=== PATIENT | male | born 1950 | race Caucasian/White ===

== ENCOUNTER → 2019-01-07 08:36 | Outpatient (CLI) | payer MEDICARE, OTHER, SELFPAY ==
--- NOTE | 2019-01-07 | DI.RAD.S_ITS ---
PROCEDURE: XR CHEST 2V INDICATIONS: COUGH, short of breath TECHNIQUE: 2 views of the chest were acquired. COMPARISON: None. FINDINGS: Surgical changes and devices: None. Lungs and pleura: Lungs are clear. No pleural effusions or pneumothorax. Mediastinum: The cardiac contours are within normal limits. The aorta demonstrates calcification and tortuosity. Bones and chest wall: Age-appropriate bony degenerative changes are seen. No suspicious bony abnormalities. Soft tissues appear unremarkable. IMPRESSION: No acute cardiopulmonary process is seen. No focal infiltrates are seen. Dictated by: Diego Red M.D. on 01/07/2019 at 8:02 Approved by: Diego Red M.D. on 01/07/2019 at 8:02
== END ==
PROVIDERS: PCP Family Medicine; Visit Provider Family Medicine
DX: R05 Cough (principal); R06.02 Shortness of breath
CPT/HCPCS: 71046

== ENCOUNTER → 2021-04-10 09:24 | Outpatient (CLI) | payer MEDICARE, OTHER, SELFPAY ==
[2021-04-10 18:34] LABS: Alanine Aminotransferase 58 IU/L (<50); Albumin 4.1 g/dL (3.5-5.0); Albumin Globulin Ratio 1.6 (1.0-2.8); Alkaline Phosphatase 60 U/L (38-126); Aspartate Aminotransferase 45 IU/L (17-59); BUN Creatinine Ratio 26.5 (6-22); Bilirubin Total 0.6 mg/dL (0.2-1.3); Blood Urea Nitrogen 18 mg/dL (9-20); Calcium 9.3 mg/dL (8.4-10.2); Carbon Dioxide 29 mmol/L (22-32); Chloride 102 mmol/L (98-107); Cholesterol 181 mg/dL (140-199); Estimated Glomerular Filt Rate > 60.0 mL/min (>60); Globulin 2.6 g/dL (1.7-4.1); Glucose 101 mg/dL (80-110); HDL Cholesterol 49 mg/dL (40-60); HEMOLYSIS < 15 (0-50); LDL Cholesterol Calculated 114 mg/dL (<100); Potassium 4.2 mmol/L (3.4-5.1); Sodium 137 mmol/L (137-145); Total Protein 6.7 g/dL (6.3-8.2); Triglycerides 90 mg/dL (35-150)
== END ==
PROVIDERS: PCP Family Medicine; Visit Provider Family Medicine
DX: E78.5 Hyperlipidemia, unspecified (principal); M19.011 Primary osteoarthritis, right shoulder
CPT/HCPCS: 80053; 80061

== ENCOUNTER → 2021-05-29 10:06 | Outpatient (CLI) | payer MEDICARE, OTHER, SELFPAY ==
[2021-05-29 18:59] LABS: Add Manual Diff / Slide Review NO; Basophils Absolute Auto 100 /uL (0-100); Basophils Percent Auto 1.1 % (0-2); Eosinophils Absolute Auto 200 /uL (0-450); Eosinophils Percent Auto 3.1 % (2-4); Hematocrit 43.9 % (41-53); Hemoglobin 15.1 g/dL (13.5-17.5); Lymphocytes Absolute Auto 1300 /uL (1100-4500); Lymphocytes Percent Auto 22.9 % (25-40); Mean Corpuscular HGB Conc 34.4 % (30-36); Mean Corpuscular Hemoglobin 29.9 PG (26-34); Mean Corpuscular Volume 86.7 fL (80-100); Monocytes Absolute Auto 500 /uL (0-900); Monocytes Percent Auto 8.8 % (3-14); Neutrophils Absolute Auto 3600 /uL (1500-7000); Neutrophils Percent Auto 64.1 % (50-75); Platelet Count 223 X10^3/uL (150-400); Red Blood Cell Count 5.06 X10^6/uL (4.5-5.9); Red Cell Distribution Width 13.1 % (11.6-14.8); White Blood Cell Count 5.6 X10^3/uL (4.5-11.0)
[2021-05-29 19:51] LABS: Prostate Specific Antigen 1.92 ng/mL (0.10-4.00)
[2021-05-29 20:43] LABS: Bilirubin Total 0.5 mg/dL (0.2-1.3); Estimated Glomerular Filt Rate > 60.0 mL/min (>60); HEMOLYSIS < 15 (0-50)
[2021-05-29 21:22] LABS: Chloride 103 mmol/L (98-107); Sodium 141 mmol/L (137-145)
[2021-05-29 21:23] LABS: Calcium 9.8 mg/dL (8.4-10.2); Carbon Dioxide 30 mmol/L (22-32); Glucose 103 mg/dL (80-110)
[2021-05-29 21:24] LABS: Albumin 4.3 g/dL (3.5-5.0); Globulin 2.7 g/dL (1.7-4.1)
[2021-05-29 21:25] LABS: Alanine Aminotransferase 68 IU/L (<50); Albumin Globulin Ratio 1.6 (1.0-2.8); Alkaline Phosphatase 56 U/L (38-126); Aspartate Aminotransferase 56 IU/L (17-59); BUN Creatinine Ratio 17.3 (6-22)
[2021-05-29 21:26] LABS: Blood Urea Nitrogen 14 mg/dL (9-20); Potassium 4.7 mmol/L (3.4-5.1)
== END ==
PROVIDERS: Registered Nurse; PCP Family Medicine; Visit Provider Specialist
DX: N40.0 Benign prostatic hyperplasia without lower urinary tract symptoms (principal); Z79.899 Other long term (current) drug therapy
CPT/HCPCS: 80053; 84153; 85025

== ENCOUNTER → 2021-06-08 08:55 | Outpatient (CLI) | payer MEDICARE, OTHER, SELFPAY ==
--- NOTE | 2021-06-08 08:57 | DI.MRI.S_ITS ---
PROCEDURE: MR SHOULDER RT WO CON INDICATIONS: Adhesive capsulitis TECHNIQUE: Noncontrast oblique coronal T2 fast spin echo with fat saturation, oblique sagittal T1 spin echo and T2 fast spin echo with fat saturation, axial T1 spin echo and T2 fast spin echo with fat saturation through the shoulder. COMPARISON: [facility] ([place]), CR, XR SHOULDER RT MIN 2V, 04/10/2021, 9:13. FINDINGS: Image quality: Excellent. Rotator cuff: There is full-thickness tearing of the mid and anterior supraspinatus tendon at the humeral insertion site. Tendinopathy with moderate grade articular surface tearing of the posterior supraspinatus tendon at the humeral insertion site. Low-grade partial-thickness articular surface tearing of the mid and anterior infraspinatus tendon at the humeral insertion site. Low-grade partial-thickness intrasubstance tearing of the mid and superior subscapularis tendon at the humeral insertion site extending the musculotendinous junction. Teres minor is intact. Bones and bursae: There is a subacute appearing impacted fracture of the humeral neck, as before which demonstrates a small focus of bony bridging. There is curvilinear geographic low T1/high T2 signal intensity within the medial aspect of the humeral head, indicating a vascular necrosis. Periarticular osteophyte formation at the glenohumeral joint is present. There is chronic irregularity of the acromion, possibly secondary to remote trauma. There is widening of the acromioclavicular interval. Moderate acromioclavicular joint degeneration. The acromion demonstrates conventional anatomy, without an os acromiale. No pathologic subacromial-subdeltoid or subcoracoid bursal fluid is present. Capsule and soft tissues: Labrum demonstrates diffuse irregularity, especially posteriorly. The long head of the biceps tendon demonstrates moderate grade tearing.. The rotator interval appears normal, without fibrosis. The coracohumeral ligament is normal in thickness. IMPRESSION: 1. Healing impacted humeral neck fracture. 2. Avascular necrosis of the humeral head. 3. Acromioclavicular and glenohumeral joint osteoarthritis. 4. Degenerative glenoid labral tearing. 5. Possible posttraumatic irregularity of the acromion. 6. Biceps tendon tear. 7. Full-thickness tearing of the supraspinatus as above. Partial-thickness tearing of the subscapularis and infraspinatus tendons. Dictated by: Bhavana Adamson M.D. on 06/08/2021 at 10:56 Approved by: Bhavana Adamson M.D. on 06/08/2021 at 11:02
== END ==
PROVIDERS: PCP Family Medicine; Referring Provider Family Medicine; Visit Provider Family Medicine
DX: M75.111 Incomplete rotator cuff tear or rupture of right shoulder, not specified as traumatic (principal); M19.011 Primary osteoarthritis, right shoulder; M87.821 Other osteonecrosis, right humerus; M75.01 Adhesive capsulitis of right shoulder; M25.511 Pain in right shoulder; S43.491A Other sprain of right shoulder joint, initial encounter; S46.111A Strain of muscle, fascia and tendon of long head of biceps, right arm, initial encounter; S42.291D Other displaced fracture of upper end of right humerus, subsequent encounter for fracture with routine healing; G89.29 Other chronic pain
CPT/HCPCS: 73221

== ENCOUNTER → 2022-09-08 08:47 | Outpatient (CLI) | payer MEDICARE, OTHER, SELFPAY ==
--- NOTE | 2022-09-10 07:43 | PM.PFT.1 ---
Pulmonary Function Test Referral & Results Date Patient Seen: 09/08/22 Requesting provider: Deena Perez Results: The spirometry demonstrates an FVC of 2.95 L which is 100% of predicted. The FEV1 was measured at 2.18 L which is 104% of predicted. The FEV1/FVC ratio was 74 which is 101% of predicted. Following the administration of bronchodilator there was a 29% improvement in FEF 25-75%. Lung volumes show an SVC of 3.1 L which is 96% of predicted. The diffusing capacity was measured at 18.85 which is 93% of predicted. Interpretation: This study demonstrates normal pulmonary function
== END ==
PROVIDERS: PCP Family Medicine; Referring Provider Internal Medicine Pulmonary Disease; Visit Provider Internal Medicine Pulmonary Disease
DX: R05.3 Chronic cough (principal); J98.8 Other specified respiratory disorders
CPT/HCPCS: 94060; 94726; 94729